=== PATIENT | male | born 1995 | race African-American/Black ===

== ENCOUNTER 2018-01-31 16:32 | Emergency (ER) | payer SELFPAY ==
[~2018-01-31] VITALS: Ht 185.4 cm; Wt 81.6 kg
[2018-01-31] MEDS ORDERED: AMOX500C2 PO (17:11)
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
[2018-01-31 17:15] VITALS: BP 162/86
== END 2018-01-31 17:15 | disposition home or self-care (01) ==
LOC: ER 16:35
DX: S01.512A Laceration without foreign body of oral cavity, initial encounter (principal); F17.200 Nicotine dependence, unspecified, uncomplicated; W22.09XA Striking against other stationary object, initial encounter
CPT/HCPCS: 12013

== ENCOUNTER 2018-02-06 17:09 | Emergency (ER) | payer SELFPAY ==
[~2018-02-06] VITALS: Ht 185.4 cm; Wt 83.9 kg
[~2018-02-06 17:09] MED LIST: AMOX500C2 PO
[2018-02-06 18:07] VITALS: BP 127/67
== END 2018-02-06 18:09 | disposition home or self-care (01) ==
LOC: EDUNIT# 17:09 → ER 17:10
DX: S01.511D Laceration without foreign body of lip, subsequent encounter (principal); X58.XXXD Exposure to other specified factors, subsequent encounter